=== PATIENT | male | born 1980 | race American Indian/Alaskan Native ===

== ENCOUNTER 2025-01-21 16:53 | Emergency (ER) | payer MEDICAID, MEDICARE ==
[2025-01-21 17:08] VITALS: BP 130/84; PULSE 67
== END 2025-01-21 18:19 | disposition home or self-care (01) ==
LOC: JP.ED 16:53
DX: T16.1XXA Foreign body in right ear, initial encounter (principal); I10 Essential (primary) hypertension; F17.200 Nicotine dependence, unspecified, uncomplicated; Z88.8 Allergy status to other drugs, medicaments and biological substances; Z79.899 Other long term (current) drug therapy; X58.XXXA Exposure to other specified factors, initial encounter
CPT/HCPCS: 69200; 99282-25